=== PATIENT | male | born 1935 | race Caucasian/White ===

== ENCOUNTER 2018-07-15 17:13 | Inpatient (IN) ==
--- NOTE | 2018-07-15 17:15 | Emergency Department Note ---
Disposition Clinical Impression: Sepsis, Community acquired pneumonia, COPD (chronic obstructive pulmonary disease) Disposition: Admitted As Inpatient Condition: Fair Referrals: NONE,PCP [Primary Care Provider] - Forms: ED Satisfaction Letter Time of Disposition: 18:45 SOB HPI - General Chief Complaint: ED Shortness of Breath/Dyspnea Stated Complaint: DIFFICULTY BREATHING Time Seen by Provider: 07/15/18 17:15 Source: patient Mode of arrival: ambulatory Limitations: no limitations Nursing Notes Reviewed: Yes Vital Signs Reviewed: Yes - History of Present Illness 82-year-old male brought in by his family today for shortness of breath. She st ates she has not been eating as well as normal. Patient has a history of Alzheimer's and at states that they keep a very strict routine to help him stay comfortable however recently today he is just not been eating and not acting like himself and sleeping more than normal. He used his nebulizers at home however he is complaining of a little bit of chest discomfort and is coughing up some clear discharge and mucus. He sounds very congested per the family. He has a history of getting pneumonia. He has not been hospitalized recently. He has felt warm. Apparently recently his granddaughter couple of days ago was diagnosed with a URI it has been around him a lot and is probably where he ca ught his cold from however his daughter says that he has a habit of getting sick quickly and so they brought him in for evaluation. Pt Subjective Complaint: shortness of breath - Related Data Home Medications Medication Instructions Recorded Confirmed Albuterol Neb [AccuNeb] 2.5 mg IH QID 05/09/15 07/09/17 Ferrous Sulfate 325 mg PO DAILY 05/09/15 07/15/18 Fluticasone/Salmeterol [Advair 1 puff IH BID 05/09/15 07/15/18 500-50 Diskus] Levothyroxine [Synthroid] 50 mcg PO DAILY 05/09/15 07/15/18 Omeprazole [PriLOSEC] 20 mg PO HS 05/09/15 07/15/18 Verapamil [Isoptin] 120 mg PO HS 05/09/15 07/15/18 Atorvastatin [Lipitor] 10 mg PO DAILY 10/12/15 07/15/18 Cholecalciferol (Vitamin D3) 2,000 unit PO DAILY 10/12/15 07/15/18 [Vitamin D3] Oxygen 2 l NS AD 10/12/15 07/15/18 Fluticasone/Salmeterol [Advair 1 IH BID 07/15/18 500-50 Diskus] Previous Rx's Medication Instructions Recorded Acetylcysteine 10% 2 ml IH [id number] inhsol 07/26/16 Allergies Allergy/AdvReac Type Severity Reaction Status Date / Time codeine Allergy Anaphylaxis Verified 07/09/17 14:24 Review of Systems: All other systems are negative except as noted/marked Chart generated with voice recognition software Nursing notes reviewed Old records reviewed Past Medical History - Past Medical History Attestation: Yes The following information was validated with the patient. Source: patient, old records reviewed, nursing notes reviewed Medical history: Reports: arthritis, atrial fibrillation, COPD, coronary artery disease, dementia, GERD, hypertension, migraine, thyroid disease Surgical history: Reports: appendectomy, other Psychiatric history: Reports: anxiety, depression - Social History Smoking Status: Former smoker Smokeless Tobacco Status: No Alcohol use: Reports: none Drug use: Reports: none Physical Exam - General Limitations: no limitations General appearance: alert, in no apparent distress - Head Head exam: atraumatic, normocephalic, normal inspection - Eye Eye exam: Present: normal appearance, PERRL, EOMI - ENT ENT exam: normal exam, normal oropharynx, mucous membranes moist, normal external ear exam - Neck Neck exam: Present: normal inspection, full ROM, trachea midline - Chest Chest inspection: Present: normal inspection, symmetric chest wall rise, tenderness - Respiratory Respiratory exam: Present: wheezes, other (Audible wheezing). Absent: accessory muscle use, prolonged expiratory phase - Cardiovascular Cardiovascular exam: Present: regular rate, normal rhythm - Abdominal Exam Abdominal exam: Present: soft, Non-Tender, normal bowel sounds - Extremities Exam Extremities exam: Present: normal inspection, full ROM. Absent: tenderness, pedal edema - Back Exam Back exam: Present: normal inspection, full ROM. Absent: tenderness - Neurological Exam Neurological exam: Present: alert, oriented X3, CN II-XII intact - Psychiatric Psychiatric exam: Present: normal affect, normal mood - Skin Skin exam: Present: warm, dry, intact, normal color Course Vital Signs Temperature 98.8 F 07/15/18 17:15 Pulse Rate 88 07/15/18 17:15 Respiratory Rate 18 07/15/18 17:15 Blood Pressure 118/72 07/15/18 17:15 O2 Sat by Pulse Oximetry 90 07/15/18 17:15 Temperature 98.8 F 07/15/18 17:15 Pulse Rate 91 07/15/18 18:36 Respiratory Rate 18 07/15/18 18:36 Blood Pressure 138/87 07/15/18 18:36 O2 Sat by Pulse Oximetry 98 07/15/18 18:36 Oxygen Delivery Oxygen Delivery Nasal Cannula Shortness of Breath/Dyspnea - [facility] Narrative Medical decision making narrative: 82-year-old male who presents today with shortness of breath wheezing and not feeling well at home. He is recently been exposed to an upper respiratory tract infection from his granddaughter. His bilateral pneumonia. He could send him over for CAT scan just to have active identified further. He is doing well until a half liters after several breathing treatments is sats are now 91-93%. Patient resting comfortably. His ABG did not look too bad. I did start him on IV antibiotics. I do think he needs to come into the hospital. He spoke with Dr. Jackson who agreed to accept the patient. Sepsis bundle was initiated. His blood pressures remained stable after IV fluids. - Medical Records Medical records reviewed: Yes I reviewed the patient's medical records. - Lab Data Lab results reviewed: Yes I reviewed the patient's lab results. Result diagrams: 07/15/18 17:45 07/15/18 17:45 Lab Results 07/15/18 07/15/18 07/15/18 Range/Units 17:43 17:45 17:45 WBC 25.1 H (4.3-11.1) K/mcL RBC 4.80 (4.19-5.50) M/mcL Hgb 13.6 (12.9-16.9) g/dL Hct 40.1 (37.5-50.1) % MCV 83.5 (83.0-100.0) fL MCH 28.3 (28.0-33.3) pg MCHC 33.9 (31.6-35.5) g/dL RDW 14.5 (11.5-14.5) % Plt Count 345 (140-400) K/mcL MPV 9.0 L (9.4-12.4) fL Immature Gran % Test Not Performed Seg Neutrophils % 36.0 % Band Neutrophils % 56.0 H (0-4) % Lymphocytes % 2.0 % Monocytes % 2.0 % Eosinophils % Test Not Performed Basophils % Test Not Performed Metamyelocytes % 4.0 H (0) % Neutrophils # 23.1 H (1.6-8.9) K/mcL Lymphocytes # 0.5 L (0.6-4.6) K/mcL Monocytes # 0.5 (0.0-1.3) K/mcL Eosinophils # Test Not Performed Basophils # Test Not Performed Platelet Estimate Normal (Normal) PT (9.4-12.1) Seconds INR APTT (26.0-36.0) Seconds Sample Site L Brach ABG pH 7.38 (7.32-7.45) pH Units ABG pCO2 49 H (35-45) mmHg ABG pO2 51 L (85-104) mmHg ABG HCO3 29 H (21-27) mEq/L ABG Total CO2 30 H (20-26) mEq/L ABG O2 Saturation 85 L (95-98) % ABG Base Excess 3 (-2 to 3) mEq/L Silvio Test N/A O2 Delivery Device Cannula Inspired O2 28.0 (1-15=lpm [id number]=%) Sodium 128 L (136-145) mEq/L Potassium 4.9 (3.5-5.1) mEq/L Chloride 92 L (98-107) mEq/L Carbon Dioxide 29 (23-29) mEq/L BUN 30 H (8-23) mg/dL Creatinine 0.86 (0.70-1.30) mg/dL Est GFR ( Amer) > 60 (> 60) Est GFR (Non-Af Amer) > 60 (> 60) BUN/Creatinine Ratio 35 H (6-26) Glucose 168 H (70-105) mg/dL Calculated Osmolality 276 L (280-300) Lactic Acid (0.5-2.2) mmol/L Calcium 9.1 (8.6-10.3) mg/dL Phosphorus (2.7-4.5) mg/dL Total Bilirubin (0.3-1.0) mg/dL Direct Bilirubin (0.0-0.2) mg/dL Indirect Bilirubin (0.0-1.2) mg/dL AST (13-39) Units/L ALT (7-52) Units/L Alkaline Phosphatase (34-104) Units/L Troponin I < 0.03 (< 0.04) ng/mL B-Natriuretic Peptide (Less than 100) pg/mL Serum Total Protein (6.4-8.9) g/dL Albumin (3.5-5.7) g/dL Globulin (2.4-3.5) g/dL Albumin/Globulin Ratio (1.1-2.2) 07/15/18 07/15/18 07/15/18 Range/Units 17:45 17:45 17:45 WBC (4.3-11.1) K/mcL RBC (4.19-5.50) M/mcL Hgb (12.9-16.9) g/dL Hct (37.5-50.1) % MCV (83.0-100.0) fL MCH (28.0-33.3) pg MCHC (31.6-35.5) g/dL RDW (11.5-14.5) % Plt Count (140-400) K/mcL MPV (9.4-12.4) fL Immature Gran % Seg Neutrophils % % Band Neutrophils % (0-4) % Lymphocytes % % Monocytes % % Eosinophils % Basophils % Metamyelocytes % (0) % Neutrophils # (1.6-8.9) K/mcL Lymphocytes # (0.6-4.6) K/mcL Monocytes # (0.0-1.3) K/mcL Eosinophils # Basophils # Platelet Estimate (Normal) PT 18.5 H (9.4-12.1) Seconds INR 1.6 APTT 31.4 (26.0-36.0) Seconds Sample Site ABG pH (7.32-7.45) pH Units ABG pCO2 (35-45) mmHg ABG pO2 (85-104) mmHg ABG HCO3 (21-27) mEq/L ABG Total CO2 (20-26) mEq/L ABG O2 Saturation (95-98) % ABG Base Excess (-2 to 3) mEq/L Silvio Test O2 Delivery Device Inspired O2 (1-15=lpm [id number]=%) Sodium (136-145) mEq/L Potassium (3.5-5.1) mEq/L Chloride (98-107) mEq/L Carbon Dioxide (23-29) mEq/L BUN (8-23) mg/dL Creatinine (0.70-1.30) mg/dL Est GFR ( Amer) (> 60) Est GFR (Non-Af Amer) (> 60) BUN/Creatinine Ratio (6-26) Glucose (70-105) mg/dL Calculated Osmolality (280-300) Lactic Acid 2.5 H (0.5-2.2) mmol/L Calcium (8.6-10.3) mg/dL Phosphorus (2.7-4.5) mg/dL Total Bilirubin (0.3-1.0) mg/dL Direct Bilirubin (0.0-0.2) mg/dL Indirect Bilirubin (0.0-1.2) mg/dL AST (13-39) Units/L ALT (7-52) Units/L Alkaline Phosphatase (34-104) Units/L Troponin I (< 0.04) ng/mL B-Natriuretic Peptide 162 H (Less than 100) pg/mL Serum Total Protein (6.4-8.9) g/dL Albumin (3.5-5.7) g/dL Globulin (2.4-3.5) g/dL Albumin/Globulin Ratio (1.1-2.2) 07/15/18 Range/Units 17:45 WBC (4.3-11.1) K/mcL RBC (4.19-5.50) M/mcL Hgb (12.9-16.9) g/dL Hct (37.5-50.1) % MCV (83.0-100.0) fL MCH (28.0-33.3) pg MCHC (31.6-35.5) g/dL RDW (11.5-14.5) % Plt Count (140-400) K/mcL MPV (9.4-12.4) fL Immature Gran % Seg Neutrophils % % Band Neutrophils % (0-4) % Lymphocytes % % Monocytes % % Eosinophils % Basophils % Metamyelocytes % (0) % Neutrophils # (1.6-8.9) K/mcL Lymphocytes # (0.6-4.6) K/mcL Monocytes # (0.0-1.3) K/mcL Eosinophils # Basophils # Platelet Estimate (Normal) PT (9.4-12.1) Seconds INR APTT (26.0-36.0) Seconds Sample Site ABG pH (7.32-7.45) pH Units ABG pCO2 (35-45) mmHg ABG pO2 (85-104) mmHg ABG HCO3 (21-27) mEq/L ABG Total CO2 (20-26) mEq/L ABG O2 Saturation (95-98) % ABG Base Excess (-2 to 3) mEq/L Silvio Test O2 Delivery Device Inspired O2 (1-15=lpm [id number]=%) Sodium (136-145) mEq/L Potassium (3.5-5.1) mEq/L Chloride (98-107) mEq/L Carbon Dioxide (23-29) mEq/L BUN (8-23) mg/dL Creatinine (0.70-1.30) mg/dL Est GFR ( Amer) (> 60) Est GFR (Non-Af Amer) (> 60) BUN/Creatinine Ratio (6-26) Glucose (70-105) mg/dL Calculated Osmolality (280-300) Lactic Acid (0.5-2.2) mmol/L Calcium (8.6-10.3) mg/dL Phosphorus 2.7 (2.7-4.5) mg/dL Total Bilirubin 0.9 (0.3-1.0) mg/dL Direct Bilirubin 0.2 (0.0-0.2) mg/dL Indirect Bilirubin 0.7 (0.0-1.2) mg/dL AST 17 (13-39) Units/L ALT 20 (7-52) Units/L Alkaline Phosphatase 86 (34-104) Units/L Troponin I (< 0.04) ng/mL B-Natriuretic Peptide (Less than 100) pg/mL Serum Total Protein 6.7 (6.4-8.9) g/dL Albumin 3.3 L (3.5-5.7) g/dL Globulin 3.4 (2.4-3.5) g/dL Albumin/Globulin Ratio 1.0 L (1.1-2.2) - Radiology Data Radiology results reviewed: Yes I reviewed the patient's radiology results. EXAMINATION: SINGLE XRAY VIEW OF THE CHEST 07/15/2018 6:06 pm COMPARISON: 07/09/2017. HISTORY: ORDERING SYSTEM PROVIDED HISTORY: dyspnea 1 day history of shortness of breath and wheezing. FINDINGS: There is a persistent infiltrate at the right lung base and a new infiltrate in the left lung base concerning for multifocal pneumonia. No significant pleural fluid. Elevated left hemidiaphragm, grossly stable. The cardiomediastinal silhouette is stable. Aortic vascular calcification. Gaseous distension below the left diaphragm, likely within the splenic flexure of the colon. XR/XR chest 1V portable IMPRESSION: Persistent right basilar infiltrate and new infiltrate at the left lung base concerning for multifocal pneumonia. CHF is felt to be less likely. D/ / Dylan Rojas MD / Dylan Rojas MD Interpreting Provider: Dylan Rojas MD - EKG Data EKG attestation: Yes I reviewed and interpreted this EKG. EKG results narrative: ekg interpretted by myself as NSR at a rate of 93, qtc of [address] elevation
[2018-07-15] MEDS ORDERED: Ipratropium/Albuterol Neb 3 ML IH ONE (17:21)
[2018-07-15] MEDS ORDERED: Albuterol 2.5 MG/3 ML NEBULIZER IH ONE (17:21)
[2018-07-15] MEDS ORDERED: 0.9 % Sodium Chloride 1,000 ML IVC ONE (17:21)
[2018-07-15] MEDS ORDERED: methylPREDNISolone 125 MG/2 ML VIAL IVP ONE (17:21)
[2018-07-15 17:45] LABS: ABG Base Excess 3 mEq/L (-2 to 3); ABG HCO3 29 mEq/L (21-27); ABG Oxygen Saturation 85 % (95-98); ABG PCO2 49 mmHg (35-45); ABG PH 7.38 pH Units (7.32-7.45); ABG PO2 51 mmHg (85-104); ABG TCO2 30 mEq/L (20-26)
[2018-07-15 18:00] LABS: Hematocrit 40.1 % (37.5-50.1); Hemoglobin 13.6 g/dL (12.9-16.9); Mean Corpuscular HGB Conc 33.9 g/dL (31.6-35.5); Mean Corpuscular Hemoglobin 28.3 pg (28.0-33.3); Mean Corpuscular Volume 83.5 fL (83.0-100.0); Platelet Count 345 K/mcL (140-400); Red Cell Distribution Width 14.5 % (11.5-14.5)
[2018-07-15 18:08] LABS: INR 1.6; Prothrombin Time 18.5 Seconds (9.4-12.1)
[2018-07-15 18:11] LABS: Activated Partial Thrombo Time 31.4 Seconds (26.0-36.0)
[2018-07-15 18:19] LABS: BUN/Creatinine Ratio 35 (6-26); Blood Urea Nitrogen 30 mg/dL (8-23); Calcium 9.1 mg/dL (8.6-10.3); Carbon Dioxide 29 mEq/L (23-29); Chloride 92 mEq/L (98-107); Glucose 168 mg/dL (70-105); Osmolality,Calculated 276 (280-300); Potassium 4.9 mEq/L (3.5-5.1); Sodium 128 mEq/L (136-145); eGFR For Non-African Americans > 60 (> 60)
[2018-07-15 18:20] LABS: Troponin I < 0.03 ng/mL (< 0.04)
[2018-07-15] MEDS ORDERED: Azithromycin 500 MG in D5% in Water 250 ML IVPB ONE (18:23)
[2018-07-15] MEDS ORDERED: cefTRIAXone 1,000 MG in Water for inj. (sterile) 20 ML 10 ML IVP ONE (18:23)
[2018-07-15 18:39] LABS: Lymphocytes # 0.5 K/mcL (0.6-4.6); Monocytes # 0.5 K/mcL (0.0-1.3); Neutrophils # 23.1 K/mcL (1.6-8.9)
[2018-07-15 18:42] LABS: Platelet Estimate Normal (Normal)
[2018-07-15 18:49] LABS: Albumin 3.3 g/dL (3.5-5.7); Bilirubin,Direct 0.2 mg/dL (0.0-0.2); Bilirubin,Indirect 0.7 mg/dL (0.0-1.2); Bilirubin,Total 0.9 mg/dL (0.3-1.0); Globulin 3.4 g/dL (2.4-3.5); Phosphorous 2.7 mg/dL (2.7-4.5); Total Protein 6.7 g/dL (6.4-8.9)
[2018-07-15] MEDS: 0.9 % Sodium Chloride 1,000 ML IVC SCH (19:29)
[2018-07-15] MEDS ORDERED: NON-FORMULARY MEDICATION 1 EACH EACH (Oxygen [Oxygen] 2 L) NS SCH (20:58)
[2018-07-15] MEDS ORDERED: Acetaminophen 325 MG TABLET PO PRN (20:58)
[2018-07-15] MEDS ORDERED: 0.9 % Sodium Chloride 1,000 ML IVC SCH (20:58)
[2018-07-15] MEDS ORDERED: *HR* HYDROcodone/Acet 5/325 mg TABLET PO PRN (20:58)
[2018-07-15] MEDS ORDERED: Naloxone 0.4 MG/ML INJ IVP PRN (20:58)
[2018-07-15] MEDS ORDERED: Budesonide/Formoterol 160/4.5 1 PUFF INH IH SCH (21:00)
[2018-07-15] MEDS ORDERED: Albuterol Neb 0.63 MG/3 ML VIAL IH SCH (21:00)
[2018-07-15] MEDS: Albuterol 2.5 MG/3 ML NEBULIZER IH SCH (22:44)
[2018-07-16] MEDS: 0.9 % Sodium Chloride 1,000 ML IVC SCH (01:09)
[2018-07-16] MEDS ORDERED: Albuterol 2.5 MG/3 ML NEBULIZER IH PRN (02:45)
[2018-07-16 03:48] LABS: Hematocrit 35.1 % (37.5-50.1); Hemoglobin 11.7 g/dL (12.9-16.9); Mean Corpuscular HGB Conc 33.3 g/dL (31.6-35.5); Mean Corpuscular Hemoglobin 27.9 pg (28.0-33.3); Mean Corpuscular Volume 83.8 fL (83.0-100.0); Mean Platelet Volume 9.2 fL (9.4-12.4); Platelet Count 283 K/mcL (140-400); Red Blood Count 4.19 M/mcL (4.19-5.50); Red Cell Distribution Width 14.7 % (11.5-14.5)
[2018-07-16 04:07] LABS: BUN/Creatinine Ratio 48 (6-26); Blood Urea Nitrogen 26 mg/dL (8-23); Calcium 8.1 mg/dL (8.6-10.3); Carbon Dioxide 24 mEq/L (23-29); Chloride 96 mEq/L (98-107); Glucose 160 mg/dL (70-105); Magnesium 1.7 mg/dL (1.6-2.6); Osmolality,Calculated 270 (280-300); Potassium 4.3 mEq/L (3.5-5.1); Sodium 126 mEq/L (136-145); eGFR For Non-African Americans > 60 (> 60)
[2018-07-16] MEDS: Albuterol 2.5 MG/3 ML NEBULIZER IH SCH (05:02)
[2018-07-16 06:27] LABS: Lymphocytes # 0.8 K/mcL (0.6-4.6); Monocytes # 0.4 K/mcL (0.0-1.3); Neutrophils # 19.7 K/mcL (1.6-8.9)
[2018-07-16 06:29] LABS: Platelet Estimate Normal (Normal)
[2018-07-16] MEDS: Levothyroxine 25 MCG TABLET PO SCH (06:36)
[2018-07-16] MEDS: Budesonide/Formoterol 160/4.5 1 PUFF INH IH SCH ×2 (08:23→21:47)
[2018-07-16] MEDS: Albuterol 2.5 MG/3 ML NEBULIZER IH PRN ×2 (08:23→21:48)
[2018-07-16] MEDS: Cholecalciferol (D-3) 1,000 UNIT TABLET PO SCH (09:01)
[2018-07-16 10:23] LABS: Bilirubin,Urine Negative (Negative); Blood,Urine Large (Negative); Clarity,Urine Cloudy (Clear); Color,Urine Yellow (Yellow); Glucose,Urine (UA) Normal (Normal); Ketones,Urine Trace mg/dL (Negative); Leukocyte Esterase,Urine Negative (Negative); Nitrite,Urine Negative (Negative); Protein,Urine 30 mg/dL (Neg-Trace); Specific Gravity,Urine 1.025 (1.010-1.025); Urobilinogen,Urine Normal (Normal)
[2018-07-16 11:07] LABS: Bacteria,Urine Few per hpf (None-Few); Mucus,Urine Few (Few); RBC,Urine TNTC per hpf (0-3); Squamous Epithelial Cell,Urine Few per lpf (None-Few)
--- NOTE | 2018-07-16 12:13 | Internal Med History&Physical ---
Date of Encounter: 07/16/18 Time of Encounter: 11:35 Assessment and Plan (1) Pneumonia Current visit: No Status: Acute He was given Rocephin and Zithromax in emergency room. Will change to IV Levaquin with clindamycin and give lactobacillus. Qualifiers: Pneumonia type: due to unspecified organism Laterality: bilateral Lung location: unspecified part of lung Qualified Code(s): J18.9 - Pneumonia, unspecified organism (2) COPD (chronic obstructive pulmonary disease) Current visit: No Status: Chronic Continue oxygen and start antibiotic treatment for pneumonia as above. Nebulizer treatments have been ordered. Qualifiers: COPD type: emphysema Emphysema type: unspecified Qualified Code(s): J43.9 - Emphysema, unspecified (3) Anemia Current visit: Yes Status: Acute Anemia testing will be ordered. Qualifiers: Anemia type: unspecified type Qualified Code(s): D64.9 - Anemia, unspecified (4) Hyponatremia Current visit: Yes Status: Acute Possibly secondary to SIADH from significant pneumonia. Asymptomatic. Monitor labs. (5) Paroxysmal atrial fibrillation Current visit: Yes Status: Acute Never on OAC. Antiplatelet agents stopped several months ago for unknown reason. Will monitor on telemetry. (6) Dementia Current visit: Yes Status: Chronic TSH normal at 2.913 on 04/10/2018. Check B12 level in a.m. Past head CT unremarkable for pathology other than age related changes. Qualifiers: Dementia type: unspecified type Dementia behavioral disturbance: without behavioral disturbance Qualified Code(s): F03.90 - Unspecified dementia without behavioral disturbance (7) Hypothyroidism Current visit: Yes Status: Chronic TSH normal at 2.913 on 04/10/2018. Continue present dose Synthroid. Qualifiers: Hypothyroidism type: unspecified Qualified Code(s): E03.9 - Hypothyroidism, unspecified (8) Hyperlipidemia Current visit: Yes Status: Chronic Lipid profile results of 04/10/2018 reviewed. Continue Lipitor. Qualifiers: Hyperlipidemia type: unspecified Qualified Code(s): E78.5 - Hyperlipidemia, unspecified (9) Dehydration Current visit: No Status: Acute IV fluids have been ordered. (10) Hypertension Current visit: No Status: Acute Qualifiers: Hypertension type: essential hypertension Qualified Code(s): I10 - Essential (primary) hypertension (11) BPH (benign prostatic hyperplasia) Current visit: Yes Status: Chronic Bladder scan will be done and urine output monitored. Qualifiers: Lower urinary tract symptom presence: unspecified whether lower urinary tract symptoms present Qualified Code(s): N40.0 - Benign prostatic hyperplasia without lower urinary tract symptoms Internal Medicine - H&P: HPI Chief complaint: Dyspnea and weakness Admitted From: Emergency Dept Plans for Post Hospital Care: Home History of present illness: Mr. 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 He was evaluated in emergency room and found to have bilateral pneumonia without evidence for sepsis. He was admitted to [facility] floor for ongoing care needs. He has dementia and cannot give additional history. She reports he smoked from age [age] up to 3 packs per day. He has a diagnosis of COPD and wears oxygen at home / at 2 L/m by nasal cannula. He had RASHEL testing in the past with no significant abnormalities found. Past Med Surg Social Fam HX - Past Medical History Medical history: arthritis, atrial fibrillation, COPD, coronary artery disease, dementia, GERD, hypertension, migraine, thyroid disease Additional medical history: Alzheimer's Disease Psychiatric history: anxiety, depression - Past Surgical History Surgical History: appendectomy, other Additional surgical history: LASER THERAPY, SCRAPING, HERNIA REPAIR, NECK SURGERY - Social History Smoking Status: Former smoker Smokeless Tobacco Status: No Alcohol use: none Drug use: none - Family History Daughter History Unknown: Yes Adopted: (Daughter left prior to patient's admission being completed.) Family Member Ethnicity: Non- Living Status: Still Living Hx Family Cardiac Disorders: Yes Hx Family Respiratory Disorders: Yes Hx Family Cancer: Yes Hx Family GI Disorders: No Hx Family Endocrine Disorder: Yes Hx Family Neuromuscular Disorders: Yes Hx Family Neurologic Disorders: Yes Hx Family HEENT Disorders: No Hx Family Autoimmune Disorders: No Internal Medicine - H&P: Meds Albuterol Neb [AccuNeb] 2.5 mg IH QID 05/09/15 [History] Ferrous Sulfate 325 mg PO DAILY 05/09/15 [History] Fluticasone/Salmeterol [Advair 500-50 Diskus] 1 puff IH BID 05/09/15 [History] Levothyroxine [Synthroid] 50 mcg PO DAILY 05/09/15 [History] Omeprazole [PriLOSEC] 20 mg PO HS 05/09/15 [History] Verapamil [Isoptin] 120 mg PO HS 05/09/15 [History] Atorvastatin [Lipitor] 10 mg PO DAILY 10/12/15 [History] Cholecalciferol (Vitamin D3) [Vitamin D3] 2,000 unit PO DAILY 10/12/15 [History] Oxygen 2 l NS AD 10/12/15 [History] Acetylcysteine 10% 2 ml IH [id number] #30 inhsol 07/26/16 [Rx] Fluticasone/Salmeterol [Advair 500-50 Diskus] 1 IH BID 07/15/18 [History] Allergy/AdvReac Type Severity Reaction Status Date / Time codeine Allergy Anaphylaxis Verified 07/09/17 14:24 All Systems PM: A 10-system review of systems was performed and is negative for pertinent findings except as documented above in the HPI. Review of systems: Enteral: His weight has increased from 62.5 kg on 07/24/2016 to 67.132 kg at present time Cardiovascular: He has history of hypertension. He has paroxysmal atrial fibrillation but does not take OAC or antiplatelet agents at this time. These were discontinued several months ago for uncertain reasons. 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 Regadenoson stress test 05/10/2015 showed no EKG or perfusion imaging indicating ischemia. There was fixed defect in the mid inferolateral segment suggestive of old infarct. The LVEF was 72%. There is no history of heart failure DVT or pulmonary embolus. Respiratory: As per history of present illness GI: He has GERD symptoms occasionally. There is no known disorders of liver gallbladder or exocrine pancreas. : He had BPH treatment by greenlight laser in 2013 with scar removal surgery in 2016. There are no other known disorders of his kidney bladder prostate. Neurologic: Has a diagnosis of dementia. His daughter reports he does not always recognize his children. He has had "mini strokes" but no large distribution strokes or seizures. Endocrine: There is no known diabetes. He has hypothyroidism and hyperlipidemia. Hematology/oncology: He has history of anemia but no known internal malignancies. Psychiatric: He has anxiety but no significant depression or other mental health issues. Musk skeletal: He has DJD but no known gout or other bone joint or muscle disorders. - Constitutional Vitals: Temp Pulse Resp BP Pulse Ox 98.0 F 87 24 129/85 95 07/16/18 06:21 07/16/18 06:21 07/16/18 08:23 07/16/18 06:21 07/16/18 08:23 Exam: Gen.: He is a well-developed lean male resting in bed who appears dyspneic HEENT: Head is atraumatic and normal cephalic. Eyes: EOMI. There is no scleral icterus. Mouth: Mucosa is dry but he is mouth breathing. He is wearing oxygen by mask. Neck: There is no thyromegaly or adenopathy noted. Heart: Tones are difficult because of respiratory sounds. Lungs: He has scattered rhonchi bilaterally but no expiratory wheezing heard. Abdomen: No masses or guarding are noted. Extremities: He is wearing compression socks which I did not remove. There is no edema palpated in his lower legs. He has mild DJD changes of his hands. Neurologic: Mental status: He does not speak except for a very rare word. He follows some commands. Cranial nerves: Smile is symmetric. Forehead wrinkles bilaterally. Tongue protrudes midline. EOMI. Motor: There is no pronator drift. Cerebellar: Finger to nose is intact bilaterally. Skin: Warm and dry Internal Med - H&P Results - Labs CBC & Chem 7: 07/16/18 03:31 07/16/18 03:31 Labs: Short CBC 07/15/18 07/16/18 Range/Units 17:45 03:31 WBC 25.1 H 21.0 H (4.3-11.1) K/mcL Hgb 13.6 11.7 L D (12.9-16.9) g/dL Hct 40.1 35.1 L (37.5-50.1) % Plt Count 345 283 (140-400) K/mcL Neutrophils # 23.1 H 19.7 H (1.6-8.9) K/mcL BMP 07/15/18 07/16/18 17:45 03:31 Sodium 128 L 126 L Potassium 4.9 4.3 Chloride 92 L 96 L Carbon Dioxide 29 24 BUN 30 H 26 H Creatinine 0.86 0.54 L Glucose 168 H 160 H Calcium 9.1 8.1 L Cardiac Enzymes 12/19/18 12/19/18 12/20/18 Range/Units 17:45 19:32 03:31 Troponin I < 0.03 0.03 < 0.03 (< 0.04) ng/mL 07/16/18 Range/Units 08:56 Troponin I < 0.03 (< 0.04) ng/mL Liver Function 07/15/18 Range/Units 17:45 Total Bilirubin 0.9 (0.3-1.0) mg/dL Direct Bilirubin 0.2 (0.0-0.2) mg/dL AST 17 (13-39) Units/L ALT 20 (7-52) Units/L Alkaline Phosphatase 86 (34-104) Units/L Albumin 3.3 L (3.5-5.7) g/dL Urine 07/16/18 Range/Units 09:50 Urine Color Yellow (Yellow) Urine Clarity Cloudy A (Clear) Urine pH 6.0 (5.0-8.0) pH Units Ur Specific [place] 1.025 (1.010-1.025) Urine Protein 30 H (Neg-Trace) mg/dL Urine Glucose (UA) Normal (Normal) mg/dL - ABG Interpretation ABG results: 07/15/18 17:43 ABG pH 7.38 ABG pCO2 49 H ABG pO2 51 L ABG HCO3 29 H ABG Total CO2 30 H ABG O2 Saturation 85 L ABG Base Excess 3 - Impressions ITS Impressions Chest X-Ray 07/15/18 17:21 IMPRESSION: Persistent right basilar infiltrate and new infiltrate at the left lung base concerning for multifocal pneumonia. CHF is felt to be less likely. D/ / Dylan Rojas MD / Dylan Rojas MD Interpreting Provider: Dylan Rojas MD Chest CT 07/15/18 18:23 IMPRESSION: Extensive bilateral multifocal consolidation, most compatible with multifocal pneumonia. This must be followed to resolution, especially since some of that airspace consolidation has a nodular morphology. No pneumothorax is found. Despite the given history, a definite acute rib fracture is not seen, but there is extensive respiratory motion artifact, and therefore it may not be detectable on the current exam. Gaseous distention of the visualized large bowel, probably ileus. Correlate clinically. D/ / Federico Yuen MD / Federico Yuen MD Interpreting Provider: Federico Yuen MD
[2018-07-16] MEDS: 0.9 % Sodium Chloride w KCl 20 MEQ/1,000 ML MLS IVC SCH (13:23)
[2018-07-16] MEDS: Levofloxacin 500 MG/100 ML 500 MG/100 ML BAG IVPB SCH (14:25)
[2018-07-16] MEDS: Clindamycin 600 MG/50 ML 600 MG/50 ML IV.SOLN IVPB SCH ×2 (15:48→16:39)
[2018-07-16] MEDS ORDERED: Azithromycin 500 MG in D5% in Water 250 ML IVPB SCH (19:00)
[2018-07-16] MEDS ORDERED: cefTRIAXone 2,000 MG in Water for inj. (sterile) 20 ML 20 ML IVP SCH (19:00)
[2018-07-16] MEDS: Lactobacillus 1 EACH CAP.SPRINK PO SCH (20:11)
[2018-07-17] MEDS: Clindamycin 600 MG/50 ML 600 MG/50 ML IV.SOLN IVPB SCH ×3 (00:18→17:12)
[2018-07-17] MEDS: 0.9 % Sodium Chloride w KCl 20 MEQ/1,000 ML MLS IVC SCH ×2 (01:49→12:23)
[2018-07-17 06:20] LABS: Basophils % 0.1 %; Hematocrit 32.1 % (37.5-50.1); Hemoglobin 10.6 g/dL (12.9-16.9); Immature Granulocytes % 0.5 % (0-4); Lymphocytes # 0.2 K/mcL (0.6-4.6); Lymphocytes % 1.6 %; Mean Corpuscular Hemoglobin 27.9 pg (28.0-33.3); Mean Corpuscular Volume 84.5 fL (83.0-100.0); Mean Platelet Volume 9.4 fL (9.4-12.4); Monocytes # 0.3 K/mcL (0.0-1.3); Monocytes % 2.4 %; Platelet Count 261 K/mcL (140-400); Red Cell Distribution Width 14.7 % (11.5-14.5); Segmented Neutrophils % 95.4 %
[2018-07-17 06:39] LABS: Neutrophils # 11.1 K/mcL (1.6-8.9)
[2018-07-17 06:44] LABS: Platelet Estimate Normal (Normal)
[2018-07-17] MEDS: Levothyroxine 25 MCG TABLET PO SCH (06:45)
[2018-07-17 06:52] LABS: BUN/Creatinine Ratio 48 (6-26); Blood Urea Nitrogen 24 mg/dL (8-23); Carbon Dioxide 26 mEq/L (23-29); Chloride 100 mEq/L (98-107); Glucose 109 mg/dL (70-105); Osmolality,Calculated 277 (280-300); Potassium 4.4 mEq/L (3.5-5.1); Sodium 131 mEq/L (136-145); eGFR For Non-African Americans > 60 (> 60)
[2018-07-17 08:54] LABS: % Iron Saturation 16 % (20-55); Iron 25 mcg/dL (65-175); Transferrin 109 mg/dL (203-362)
[2018-07-17 09:12] LABS: Ferritin 506 ng/mL (20-250)
[2018-07-17 09:17] LABS: Folate 7.4 ng/mL (3.0-16.0)
[2018-07-17] MEDS: Lactobacillus 1 EACH CAP.SPRINK PO SCH ×2 (09:21→21:16)
[2018-07-17] MEDS: Cholecalciferol (D-3) 1,000 UNIT TABLET PO SCH (09:21)
--- NOTE | 2018-07-17 10:12 | Internal Med Progress Note ---
Date of Encounter: 07/17/18 Time of Encounter: 10:05 - Assessment and plan (1) Pneumonia Current Visit: No Status: Acute Assessment and plan: July 17. WBC significantly decreased at 11.6. Continue IV Levaquin and clindamycin with lactobacillus. Qualifiers: Pneumonia type: due to unspecified organism Laterality: bilateral Lung location: unspecified part of lung Qualified Code(s): J18.9 - Pneumonia, unspecified organism (2) COPD (chronic obstructive pulmonary disease) Current Visit: No Status: Chronic Assessment and plan: July 17. Continue oxygen, antibiotics, and nebulizer treatments. Qualifiers: COPD type: emphysema Emphysema type: unspecified Qualified Code(s): J43.9 - Emphysema, unspecified (3) Anemia Current Visit: Yes Status: Acute Assessment and plan: July 17. Anemia testing showed iron 25, transferrin saturation 16%, transferrin 109, ferritin 506, B12 298, and folate 7.4. Start trial of ferrous sulfate with ascorbic acid. Qualifiers: Anemia type: unspecified type Qualified Code(s): D64.9 - Anemia, unspecified (4) Hyponatremia Current Visit: Yes Status: Acute Assessment and plan: July 17. Sodium improved to 131. Continue present regimen. (5) Paroxysmal atrial fibrillation Current Visit: Yes Status: Acute Assessment and plan: July 17. Continue to monitor. (6) Dementia Current Visit: Yes Status: Chronic Assessment and plan: July 17. TSH normal at 2.913 on 04/10/2018. B12 normal. Past head CT unremarkable for pathology other than age-related changes. Qualifiers: Dementia type: unspecified type Dementia behavioral disturbance: without behavioral disturbance Qualified Code(s): F03.90 - Unspecified dementia without behavioral disturbance (7) Hypothyroidism Current Visit: Yes Status: Chronic Assessment and plan: July 17. TSH normal at 2.913 on 04/10/2018. Continue present dose Synthroid. Qualifiers: Hypothyroidism type: unspecified Qualified Code(s): E03.9 - Hypothyroidism, unspecified (8) Hyperlipidemia Current Visit: Yes Status: Chronic Assessment and plan: July 17. Lipid profile results of 04/10/2018 reviewed. Continue Lipitor Qualifiers: Hyperlipidemia type: unspecified Qualified Code(s): E78.5 - Hyperlipidemia, unspecified (9) Dehydration Current Visit: No Status: Acute Assessment and plan: July 17. BUN and creatinine improved to 24 and 0.50 respectively. Continue IV fluids and oral intake. (10) Hypertension Current Visit: No Status: Acute Assessment and plan: July 17. Continue verapamil. Qualifiers: Hypertension type: essential hypertension Qualified Code(s): I10 - Essential (primary) hypertension (11) BPH (benign prostatic hyperplasia) Current Visit: Yes Status: Chronic Assessment and plan: July 17. Continue to monitor urinary output. Qualifiers: Lower urinary tract symptom presence: unspecified whether lower urinary tract symptoms present Qualified Code(s): N40.0 - Benign prostatic hyperplasia without lower urinary tract symptoms (12) Weakness Current Visit: No Status: Acute Assessment and plan: July 17. PT and OT evaluations will be ordered. - Subjective Interval history: July 17. No new problems have arisen. - Constitutional Vitals: Temp Pulse Resp BP Pulse Ox 98.1 F 87 22 128/82 98 07/17/18 10:07 07/17/18 10:07 07/17/18 07:28 07/17/18 10:07 07/17/18 10:07 Exam: He is resting comfortably in bed. He is wearing oxygen by mask. Heart tones are difficult to hear. Lungs show decreased rhonchi. I reviewed his medications and lab results. Internal Medicine: Result - Labs CBC & Chem 7: 07/17/18 05:28 07/17/18 05:28 Labs: Short CBC 07/17/18 Range/Units 05:28 WBC 11.6 H (4.3-11.1) K/mcL Hgb 10.6 L (12.9-16.9) g/dL Hct 32.1 L (37.5-50.1) % Plt Count 261 (140-400) K/mcL Neutrophils # 11.1 H (1.6-8.9) K/mcL BMP 07/17/18 05:28 Sodium 131 L Potassium 4.4 Chloride 100 Carbon Dioxide 26 BUN 24 H Creatinine 0.50 L Glucose 109 H Calcium 8.0 L Urine 07/16/18 Range/Units 09:50 Urine Color Yellow (Yellow) Urine Clarity Cloudy A (Clear) Urine pH 6.0 (5.0-8.0) pH Units Ur Specific [place] 1.025 (1.010-1.025) Urine Protein 30 H (Neg-Trace) mg/dL Urine Glucose (UA) Normal (Normal) mg/dL - ABG Interpretation ABG results: ABG ABG pH 7.38 pH Units (7.32-7.45) 07/15/18 17:43 ABG pCO2 49 mmHg (35-45) H 07/15/18 17:43 ABG pO2 51 mmHg (85-104) L 07/15/18 17:43 ABG O2 Saturation 85 % (95-98) L 07/15/18 17:43 PT/INR, D-dimer PT 18.5 Seconds (9.4-12.1) H 07/15/18 17:45 Consult Discharge Plan - Plan Referrals: NONE,PCP [Primary Care Provider] - 1 week
[2018-07-17] MEDS: Budesonide/Formoterol 160/4.5 1 PUFF INH IH SCH ×2 (10:51→22:20)
[2018-07-17] MEDS: Levofloxacin 500 MG/100 ML 500 MG/100 ML BAG IVPB SCH (11:05)
[2018-07-17] MEDS: Albuterol 2.5 MG/3 ML NEBULIZER IH PRN (23:53)
[2018-07-18] MEDS: Clindamycin 600 MG/50 ML 600 MG/50 ML IV.SOLN IVPB SCH ×3 (00:13→16:51)
[2018-07-18 06:02] LABS: Basophils % 0.1 %; Hematocrit 32.6 % (37.5-50.1); Hemoglobin 10.7 g/dL (12.9-16.9); Immature Granulocytes % 0.6 % (0-4); Lymphocytes # 0.5 K/mcL (0.6-4.6); Lymphocytes % 5.6 %; Mean Corpuscular HGB Conc 32.8 g/dL (31.6-35.5); Mean Corpuscular Hemoglobin 27.9 pg (28.0-33.3); Mean Corpuscular Volume 84.9 fL (83.0-100.0); Monocytes # 0.6 K/mcL (0.0-1.3); Neutrophils # 8.1 K/mcL (1.6-8.9); Platelet Count 244 K/mcL (140-400); Red Blood Count 3.84 M/mcL (4.19-5.50); Red Cell Distribution Width 14.6 % (11.5-14.5); Segmented Neutrophils % 87.7 %
[2018-07-18 06:26] LABS: BUN/Creatinine Ratio 33 (6-26); Blood Urea Nitrogen 18 mg/dL (8-23); Calcium 7.6 mg/dL (8.6-10.3); Carbon Dioxide 28 mEq/L (23-29); Chloride 100 mEq/L (98-107); Glucose 73 mg/dL (70-105); Osmolality,Calculated 274 (280-300); Potassium 4.1 mEq/L (3.5-5.1); Sodium 132 mEq/L (136-145); eGFR For Non-African Americans > 60 (> 60)
[2018-07-18] MEDS: Ascorbic Acid 500 MG TABLET PO SCH (06:42)
[2018-07-18] MEDS: Levothyroxine 25 MCG TABLET PO SCH (06:42)
[2018-07-18] MEDS: Cholecalciferol (D-3) 1,000 UNIT TABLET PO SCH (07:59)
[2018-07-18] MEDS: Lactobacillus 1 EACH CAP.SPRINK PO SCH ×2 (07:59→21:07)
--- NOTE | 2018-07-18 09:14 | Internal Med Progress Note ---
Date of Encounter: 07/18/18 Time of Encounter: 09:05 - Assessment and plan (1) Pneumonia Current Visit: No Status: Acute Assessment and plan: July 17. WBC significantly decreased at 11.6. Continue IV Levaquin and clindamycin with lactobacillus. July 18. WBC normal at 9.3. Left shift persists on differential. Continue present regimen. Anticipate discharge home tomorrow Qualifiers: Pneumonia type: due to unspecified organism Laterality: bilateral Lung location: unspecified part of lung Qualified Code(s): J18.9 - Pneumonia, unspecified organism (2) COPD (chronic obstructive pulmonary disease) Current Visit: No Status: Chronic Assessment and plan: July 17. Continue oxygen, antibiotics, and nebulizer treatments. Qualifiers: COPD type: emphysema Emphysema type: unspecified Qualified Code(s): J43.9 - Emphysema, unspecified (3) Anemia Current Visit: Yes Status: Acute Assessment and plan: July 17. Anemia testing showed iron 25, transferrin saturation 16%, transferrin 109, ferritin 506, B12 298, and folate 7.4. Start trial of ferrous sulfate with ascorbic acid. Qualifiers: Anemia type: unspecified type Qualified Code(s): D64.9 - Anemia, unspecified (4) Hyponatremia Current Visit: Yes Status: Acute Assessment and plan: July 17. Sodium improved to 131. Continue present regimen. July 18. Sodium stable at 132. Discontinue maintenance IV fluids. (5) Paroxysmal atrial fibrillation Current Visit: Yes Status: Acute Assessment and plan: July 17. Continue to monitor. (6) Dementia Current Visit: Yes Status: Chronic Assessment and plan: July 17. TSH normal at 2.913 on 04/10/2018. B12 normal. Past head CT unremarkable for pathology other than age-related changes. Qualifiers: Dementia type: unspecified type Dementia behavioral disturbance: without behavioral disturbance Qualified Code(s): F03.90 - Unspecified dementia without behavioral disturbance (7) Hypothyroidism Current Visit: Yes Status: Chronic Assessment and plan: July 17. TSH normal at 2.913 on 04/10/2018. Continue present dose Synthroid. Qualifiers: Hypothyroidism type: unspecified Qualified Code(s): E03.9 - Hypothyroidism, unspecified (8) Hyperlipidemia Current Visit: Yes Status: Chronic Assessment and plan: July 17. Lipid profile results of 04/10/2018 reviewed. Continue Lipitor Qualifiers: Hyperlipidemia type: unspecified Qualified Code(s): E78.5 - Hyperlipidemia, unspecified (9) Dehydration Current Visit: No Status: Acute Assessment and plan: July 17. BUN and creatinine improved to 24 and 0.50 respectively. Continue IV fluids and oral intake. July 18. BUN and creatinine stable at 18 and 0.54 respectively with estimated GFR greater than 60. (10) Hypertension Current Visit: No Status: Acute Assessment and plan: July 17. Continue verapamil. Qualifiers: Hypertension type: essential hypertension Qualified Code(s): I10 - Essential (primary) hypertension (11) BPH (benign prostatic hyperplasia) Current Visit: Yes Status: Chronic Assessment and plan: July 17. Continue to monitor urinary output. Qualifiers: Lower urinary tract symptom presence: unspecified whether lower urinary tract symptoms present Qualified Code(s): N40.0 - Benign prostatic hyperplasia without lower urinary tract symptoms (12) Weakness Current Visit: No Status: Acute Assessment and plan: July 17. PT and OT evaluations will be ordered. - Subjective Interval history: July 17. No new problems have arisen. July 18. He has no new complaints and feels better. - Constitutional Vitals: Temp Pulse Resp BP Pulse Ox 97.7 F 76 16 131/83 98 07/18/18 06:55 07/18/18 06:55 07/18/18 06:55 07/18/18 06:55 07/18/18 08:16 Exam: He is resting comfortably in bed and appears in no acute distress. He is more alert and able to answer questions appropriately. I reviewed his medications and lab results. Internal Medicine: Result - Labs CBC & Chem 7: 07/18/18 04:44 07/18/18 04:44 Labs: Short CBC 07/18/18 Range/Units 04:44 WBC 9.3 (4.3-11.1) K/mcL Hgb 10.7 L (12.9-16.9) g/dL Hct 32.6 L (37.5-50.1) % Plt Count 244 (140-400) K/mcL Neutrophils # 8.1 (1.6-8.9) K/mcL BMP 07/18/18 04:44 Sodium 132 L Potassium 4.1 Chloride 100 Carbon Dioxide 28 BUN 18 Creatinine 0.54 L Glucose 73 Calcium 7.6 L - ABG Interpretation ABG results: ABG ABG pH 7.38 pH Units (7.32-7.45) 07/15/18 17:43 ABG pCO2 49 mmHg (35-45) H 07/15/18 17:43 ABG pO2 51 mmHg (85-104) L 07/15/18 17:43 ABG O2 Saturation 85 % (95-98) L 07/15/18 17:43 PT/INR, D-dimer PT 18.5 Seconds (9.4-12.1) H 07/15/18 17:45 Consult Discharge Plan - Plan Referrals: NONE,PCP [Primary Care Provider] - 1 week
[2018-07-18] MEDS: Budesonide/Formoterol 160/4.5 1 PUFF INH IH SCH ×2 (09:40→21:27)
[2018-07-18] MEDS: Levofloxacin 500 MG/100 ML 500 MG/100 ML BAG IVPB SCH (09:57)
[2018-07-18] MEDS: 0.9 % Sodium Chloride w KCl 20 MEQ/1,000 ML MLS IVC SCH (10:19)
--- NOTE | 2018-07-18 10:56 | Electrocardiograph Report ---
[place] [id number] Test Date: 2018-07-15 Pat Name: Mayito Potter Department: EDP-12 Room: [facility] Gender: M Psychological Anthropologist: : 1935 Requested By: Carmen Salinas Order Number: [id number] Reading MD: Mini Pelayo Measurements Intervals [place] Rate: 93 P: 22 CA: 199 QRS: 62 QRSD: 124 T: 43 QT: 342 QTc: 426 Interpretive Statements Sinus rhythm Probable left atrial enlargement RBBB Electronically Signed On 07-18-2018 10:54:24 EST by Mini Pelayo
[2018-07-19] MEDS: Clindamycin 600 MG/50 ML 600 MG/50 ML IV.SOLN IVPB SCH ×2 (00:15→08:34)
[2018-07-19] MEDS: Levothyroxine 25 MCG TABLET PO SCH (06:43)
[2018-07-19] MEDS: Ascorbic Acid 500 MG TABLET PO SCH (06:43)
[2018-07-19 06:47] VITALS: BP 130/85
[2018-07-19] MEDS: Levofloxacin 500 MG/100 ML 500 MG/100 ML BAG IVPB SCH (08:34)
[2018-07-19] MEDS: Cholecalciferol (D-3) 1,000 UNIT TABLET PO SCH (08:34)
[2018-07-19] MEDS: Lactobacillus 1 EACH CAP.SPRINK PO SCH (08:34)
[2018-07-19] MEDS: Budesonide/Formoterol 160/4.5 1 PUFF INH IH SCH (09:15)
--- NOTE | 2018-07-19 09:40 | Discharge Summary ---
Orders not resulted at time of discharge: Pending orders 07/15/18 17:50 Culture,Blood [BC] Stat 07/16/18 09:55 Culture,Sputum with Gram Stain [RM] Routine Date of Encounter: 07/19/18 Time of Encounter: 09:30 - Discharge Diagnosis (1) Pneumonia Priority: Primary Status: Acute Qualifiers: Pneumonia type: due to unspecified organism Laterality: bilateral Lung location: unspecified part of lung Qualified Code(s): J18.9 - Pneumonia, unspecified organism (2) COPD (chronic obstructive pulmonary disease) Priority: Secondary Status: Chronic Qualifiers: COPD type: emphysema Emphysema type: unspecified Qualified Code(s): J43.9 - Emphysema, unspecified (3) Anemia Priority: Secondary Status: Acute Qualifiers: Anemia type: unspecified type Qualified Code(s): D64.9 - Anemia, unspecified (4) Hyponatremia Priority: Secondary Status: Acute (5) Paroxysmal atrial fibrillation Priority: Secondary Status: Acute (6) Dementia Priority: Secondary Status: Chronic Qualifiers: Dementia type: unspecified type Dementia behavioral disturbance: without behavioral disturbance Qualified Code(s): F03.90 - Unspecified dementia without behavioral disturbance (7) Hypothyroidism Priority: Secondary Status: Chronic Qualifiers: Hypothyroidism type: unspecified Qualified Code(s): E03.9 - Hypothyroidism, unspecified (8) Hyperlipidemia Priority: Secondary Status: Chronic Qualifiers: Hyperlipidemia type: unspecified Qualified Code(s): E78.5 - Hyperlipidemia, unspecified (9) Dehydration Priority: Secondary Status: Acute (10) Hypertension Priority: Secondary Status: Acute Qualifiers: Hypertension type: essential hypertension Qualified Code(s): I10 - Essential (primary) hypertension (11) BPH (benign prostatic hyperplasia) Priority: Secondary Status: Chronic Qualifiers: Lower urinary tract symptom presence: unspecified whether lower urinary tract symptoms present Qualified Code(s): N40.0 - Benign prostatic hyperplasia without lower urinary tract symptoms (12) Weakness Priority: Secondary Status: Acute Hospital course: Mr. 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 He was evaluated in emergency room and found to have bilateral pneumonia without evidence for sepsis. He was admitted to [facility] for ongoing care needs. Initial orders were written by the emergency room physician. I saw him on July 16 and performed a history and physical. He was given Rocephin and Zithromax in emergency room. I changed him to IV Levaquin with clindamycin. Lactobacillus was also given. He had clinical improvement with resolution of bandemia by July 17. WBC normalized by July 18. He remained afebrile. He will continue with antibiotic and probiotic for 3 additional days at discharge. Sodium level improved to 132. BUN and creatinine improved to 18 and 0.54 respectively with estimated GFR greater than 60. There were no new problems and on July 19 he felt improved and stable for discharge home. He will follow with his PCP within 1 week. - Time Spent with Patient Total time spent providing and/or coordinating discharge services: - Discharge Medications Prescriptions: Clindamycin HCl 300 mg PO Q8H #9 capsule Lactobacillus [Culturelle] 1 each PO BID #6 cap.sprink levoFLOXacin [Levaquin] 500 mg PO DAILY #3 tablet Home Medications: Albuterol Neb [AccuNeb] 2.5 mg IH QID 05/09/15 [History] Ferrous Sulfate 325 mg PO DAILY 05/09/15 [History] Fluticasone/Salmeterol [Advair 500-50 Diskus] 1 puff IH BID 05/09/15 [History] Levothyroxine [Synthroid] 50 mcg PO DAILY 05/09/15 [History] Omeprazole [PriLOSEC] 20 mg PO HS 05/09/15 [History] Verapamil [Isoptin] 120 mg PO HS 05/09/15 [History] Atorvastatin [Lipitor] 10 mg PO DAILY 10/12/15 [History] Cholecalciferol (Vitamin D3) [Vitamin D3] 2,000 unit PO DAILY 10/12/15 [History] Oxygen 2 l NS AD 10/12/15 [History] Acetylcysteine 10% 2 ml IH [id number] #30 inhsol 07/26/16 [Rx] Fluticasone/Salmeterol [Advair 500-50 Diskus] 1 IH BID 07/15/18 [History] Clindamycin HCl 300 mg PO Q8H #9 capsule 07/19/18 [Rx] Lactobacillus [Culturelle] 1 each PO BID #6 cap.sprink 07/19/18 [Rx] levoFLOXacin [Levaquin] 500 mg PO DAILY #3 tablet 07/19/18 [Rx] Allergies/Adverse Reactions: Allergy/AdvReac Type Severity Reaction Status Date / Time codeine Allergy Anaphylaxis Verified 07/09/17 14:24 Date of admission: 07/16/18 12:35 Primary care physician: PCP NONE Consults: 07/16/18 15:20 Consult to Speech Therapy [CONS] Routine Comment: Evaluate, develop and implement POC Reason for Consult: Dysphagia Time Notified: 15:21 Call Completed: Yes 07/17/18 10:16 Consult to Occupational Therapy [CONS] Routine Comment: Evaluate, develop and implement POC Reason for Consult: Weakness Does patient have active BEDREST order?: No Is patient medically & hemodynamically stable?: Yes Patient assessed for mobility or mobilized this visit?: Yes Consult to Physical Therapy [CONS] Routine Comment: Evaluate, develop and implement POC Reason for Consult: Weakness Does patient have active BEDREST order?: No Is patient medically & hemodynamically stable?: Yes Patient assessed for mobility or mobilized this visit?: Yes - Constitutional Vitals: Temp Pulse Resp BP Pulse Ox 97.7 F 77 16 130/85 96 07/19/18 06:00 07/19/18 06:00 07/19/18 09:15 07/19/18 06:00 07/19/18 09:15 - Patient Status Disposition: Home Health Service Condition: Fair - Discharge Instructions Follow Up With: Martin Dennis MD [Partnered Physician] - 1 week - Diet and Activity Activity: resume usual activities as tolerated, wear oxygen at all times Diet: advance to your usual diet
== END 2018-07-19 10:35 | disposition home health service (06) | DRG 194 ==
LOC: INPPIK 17:13 → EMEROOPIK 17:13 → INPPIK 20:12
PROVIDERS: ADMIT Internal Medicine; ATTEND Internal Medicine